=== PATIENT | female | born 1960 | race Caucasian/White ===

== ENCOUNTER 2017-10-12 08:42 | Emergency (ER) | payer OTHER ==
[~2017-10-12] VITALS: Ht 160 cm; Wt 64.9 kg
[2017-10-12] MEDS ORDERED: ASPI81CH PO (09:17)
[2017-10-12] MEDS ORDERED: STATIN DRUG (09:17)
[2017-10-12] MEDS ORDERED: NAPR500ERA PO (09:18)
[2017-10-12] MEDS ORDERED: CHOL10002 (09:18)
[2017-10-12] MEDS ORDERED: MELO7.5 PO (09:18)
[2017-10-12] MEDS ORDERED: Cyclobenzaprine5 MG PO (09:19)
[2017-10-12] MEDS ORDERED: Flonase 0.05% N16 GM (09:38)
[2017-10-12] MEDS ORDERED: Vibramycin100 MG PO (09:38)
[2017-10-12] MEDS ORDERED: METPRE4DP PO (09:38)
== END 2017-10-12 09:40 | disposition home or self-care (01) ==
LOC: ER 08:42
DX: J44.1 Chronic obstructive pulmonary disease with (acute) exacerbation (principal); F17.210 Nicotine dependence, cigarettes, uncomplicated; E78.00 Pure hypercholesterolemia, unspecified; Z79.82 Long term (current) use of aspirin; Z79.899 Other long term (current) drug therapy
CPT/HCPCS: 99283